=== PATIENT | female | born 1980 | race Caucasian/White ===

== ENCOUNTER 2017-04-02 18:25 | Emergency (ER) | payer MEDICAID ==
[~2017-04-02] VITALS: Ht 160 cm; Wt 81.6 kg
[2017-04-02 19:02] VITALS: BP 140/76
--- NOTE | 2017-04-02 19:26 | NUR ---
37 Y/O F W/C/O RIGHT 5TH FINGER PAIN SINCE LAST NOC. PT DENIES ANY OTHER MEDICAL HX. AFFECTED FINGER APPEARS RED AND SWOLLEN. PT STATES IS DIFFICULT TO BEND OR MOVE FINGER.
--- NOTE | 2017-04-02 19:27 | NUR ---
TO ER [id number]
--- NOTE | 2017-04-02 19:30 | NUR ---
Patient being evaluated by ACADEM[facility] PROGRAM SPECIALIST.
[2017-04-02 20:31] VITALS: BP 139/84
--- NOTE | 2017-04-02 20:31 | NUR ---
Patient discharged with v/s stable. Written and verbal after care instructions given and explained. Patient verbalized understanding. Ambulatory with steady gait. All questions addressed prior to discharge. Advised to follow up with PMD OR RETURN TO ER IF CONDITION WORSENS. FINGER SPLINT APPLIED ON AFFECTED FIRNGER BY EMT. PT TOLERATED WELL.
== END 2017-04-02 20:31 | disposition home or self-care (01) ==
LOC: MED 18:25
DX: S69.91XA Unspecified injury of right wrist, hand and finger(s), initial encounter (principal); W20.8XXA Other cause of strike by thrown, projected or falling object, initial encounter; Y93.89 Activity, other specified; Y99.8 Other external cause status; Y99.0 Civilian activity done for income or pay
CPT/HCPCS: 73140; 99284

== ENCOUNTER 2017-04-14 15:04 | Emergency (ER) | payer MEDICAID ==
[~2017-04-14] VITALS: Ht 162.6 cm; Wt 87.1 kg
[2017-04-14 15:50] VITALS: BP 117/71
--- NOTE | 2017-04-14 16:10 | NUR ---
PATIENT PRESENTS TO ED WITH intermittent paresthesia bue x >1 month---labs 1 wk ago, called by pmd saturday to say she may have a blood clot.pt is concerned because she had another episode of paresthesia bue, headaache;DENIES N/V/D; SKIN IS PINK/WARM/DRY; AAOX4 WITH EVEN AND STEADY GAIT; LUNGS CLEAR BL; HR EVEN AND REGULAR; PT DENIES ANY FEVER, CP, SOB, OR COUGH AT THIS TIME; PATIENT STATES PAIN OF 4/10 headache AT THIS TIME;PATIENT POSITIONED FOR COMFORT; HOB ELEVATED; BEDRAILS UP X2; BED DOWN. all monitors in placed.
--- NOTE | 2017-04-14 16:10 | NUR ---
Patient to bed 07.
[2017-04-14] MEDS ORDERED: NACL 0.9% 1,000 ML IV SCH (16:23)
--- NOTE | 2017-04-14 16:23 | NUR ---
Dr. Guo evaluating patient at bedside.
--- NOTE | 2017-04-14 16:44 | NUR ---
XRAY at bedside.
--- NOTE | 2017-04-14 16:48 | NUR ---
US tech at bedside.
[2017-04-14 17:06] LABS: BASOPHILS # (AUTO) 0.2 K/uL (0.00-0.22); BASOPHILS % (AUTO) 1.8 % (0.0-2.0); EOSINOPHILS # (AUTO) 0.2 K/uL (0-0.4); EOSINOPHILS % (AUTO) 2.3 % (0.0-4.0); HEMATOCRIT 38.4 % (36-48); HEMOGLOBIN 12.5 g/dL (12.0-16.0); LYMPHOCYTES # (AUTO) 2.4 K/uL (2.5-16.5); LYMPHOCYTES % (AUTO) 28.1 % (20.5-51.1); MEAN CORPUSCULAR HEMOGLOBIN 28 pg (27-31); MEAN CORPUSCULAR HGB CONC 33 g/dL (33-37); MEAN CORPUSCULAR VOLUME 87 fL (80-94); MONOCYTES # (AUTO) 0.4 K/uL (0.8-1.0); MONOCYTES % (AUTO) 4.2 % (1.7-9.3); NEUTROPHILS # (AUTO) 5.4 K/uL (1.8-7.7); NEUTROPHILS % (AUTO) 63.6 % (42.2-75.2); PLATELET COUNT (AUTO) 353 K/uL (140-450); RED BLOOD CELL COUNT(AUTO) 4.43 MIL/uL (4.20-5.40); RED CELL DISTRIBUTION WIDTH 12.9 % (11.6-13.7); WHITE BLOOD COUNT (AUTO) 8.6 K/uL (4.8-10.8)
[2017-04-14 17:16] LABS: AMYLASE 51 U/L (25-115); LIPASE 170 U/L (73-393)
[2017-04-14 17:16] LABS: ANION GAP 9.7 (8-16); CALCIUM 8.4 mg/dL (8.5-10.1); CARBON DIOXIDE 29.2 mmol/L (21-32); CREATININE 0.7 mg/dL (0.6-1.3); POTASSIUM 3.9 mmol/L (3.5-5.1)
--- NOTE | 2017-04-14 17:21 | NUR ---
PT AMBULATED TO THE RESTROOM.
[2017-04-14 17:22] LABS: ALBUMIN 3.4 g/dL (3.4-5.0); TOTAL BILIRUBIN 0.4 mg/dL (0.0-1.0); TOTAL PROTEIN, SERUM 7.4 g/dL (6.4-8.2)
[2017-04-14 17:29] LABS: PARTIAL THROMBOPLASTIN TIME 30.9 secs (22-35.6); PROTHROMBIN TIME 9.8 secs (10.8-13.4)
--- NOTE | 2017-04-14 18:16 | NUR ---
PT RESTING ON BED;LESLY CUTE DSITRESS NOTED;WILL CONTINUE TO MONITOR PT.
[2017-04-14 18:45] VITALS: BP 115/70
--- NOTE | 2017-04-14 18:45 | NUR ---
Patient discharged with v/s stable. Written and verbal after care instructions given and explained. Patient alert, oriented and verbalized understanding of instructions. Ambulatory with steady gait. All questions addressed prior to discharge. ID band removed. Patient advised to follow up with PMD. Rx of TYLENOL W/ CODEINE AND ATIVAN given. Patient educated on indication of medication including possible reaction and side effects. Opportunity to ask questions provided and answered.
[2017-04-14 23:40] LABS: APPEARANCE,URINE SL CLOUDY (CLEAR); BILIRUBIN,URINE NEGATIVE (NEGATIVE); BLOOD, URINE NEGATIVE (NEGATIVE); COLOR,URINE YELLOW (YELLOW); LEUKOCYTE ESTERASE ,URINE NEGATIVE (NEGATIVE); NITRITE, URINE NEGATIVE (NEGATIVE); PROTEIN,URINE NEGATIVE (NEGATIVE); UGLUCOSE NEGATIVE (NEGATIVE); UROBILINOGEN,URINE 0.2 EU/dL (0.2 - 1)
[2017-04-14 23:52] LABS: BACTERIA,URINE 3+ /HPF (None Seen); RBC,URINE 0-5 (RARE) /HPF (0-5); SQUAMOUS EPITHELIAL CELL,UR 20-40 /LPF (0-3 (FEW))
== END 2017-04-14 18:45 | disposition home or self-care (01) ==
LOC: MED 15:04
DX: G44.209 Tension-type headache, unspecified, not intractable (principal); F41.9 Anxiety disorder, unspecified; R20.9 Unspecified disturbances of skin sensation; Z88.0 Allergy status to penicillin; Z71.6 Tobacco abuse counseling
CPT/HCPCS: 36415; 71010; 80053; 81001; 81025; 82150; 82553; 83690; 83880; 84484; 85025; 85379; 85610; 85730; 87086; 93005; 93970; 96360; 99285; J7030; Q0092

== ENCOUNTER 2018-02-11 21:54 | Emergency (ER) | payer MEDICAID ==
[~2018-02-11] VITALS: Ht 160 cm; Wt 81.6 kg
[2018-02-11 22:00] VITALS: BP 106/75
--- NOTE | 2018-02-11 22:05 | NUR ---
Pt presents to ED with bilateral foot/ankle edema, 1+ non pitting. Pt states no cardiac history. Pt arrived to ED with sinus tackycardia at 109. Pt is not in distress, states no SOB, Dyspnea, pain in lower legs 1/10 described as pressure. Positioned in bed for comfort. A&Ox4, skin warm and dry. ER MD aware. Continue to monitor.
--- NOTE | 2018-02-11 22:07 | NUR ---
PT.AMBULTED TO ER BED 4
[2018-02-11] MEDS ORDERED: FUROSEMIDE 20 MG/2 ML VIAL IVP ONE (23:15)
[2018-02-11 23:42] LABS: BASOPHILS % (AUTO) 0.6 % (0.0-2.0); EOSINOPHILS # (AUTO) 0.2 K/uL (0-0.4); EOSINOPHILS % (AUTO) 2.7 % (0.0-4.0); HEMATOCRIT 34.9 % (36-48); HEMOGLOBIN 11.7 g/dL (12.0-16.0); LYMPHOCYTES # (AUTO) 2.6 K/uL (2.5-16.5); LYMPHOCYTES % (AUTO) 36.4 % (20.5-51.1); MEAN CORPUSCULAR HEMOGLOBIN 29 pg (27-31); MEAN CORPUSCULAR HGB CONC 33 g/dL (33-37); MEAN CORPUSCULAR VOLUME 86.1 fL (80-94); MONOCYTES # (AUTO) 0.4 K/uL (0.8-1.0); MONOCYTES % (AUTO) 6.1 % (1.7-9.3); NEUTROPHILS # (AUTO) 3.9 K/uL (1.8-7.7); NEUTROPHILS % (AUTO) 54.2 % (42.2-75.2); PLATELET COUNT (AUTO) 297 K/uL (140-450); RED BLOOD CELL COUNT(AUTO) 4.06 MIL/uL (4.20-5.40); RED CELL DISTRIBUTION WIDTH 13.3 % (11.6-13.7); WHITE BLOOD COUNT (AUTO) 7.1 K/uL (4.8-10.8)
[2018-02-11 23:47] LABS: ANION GAP 13.4 (8-16); CARBON DIOXIDE 25.6 mmol/L (21-32); CREATININE 0.7 mg/dL (0.6-1.3)
[2018-02-11 23:54] LABS: TOTAL BILIRUBIN 0.3 mg/dL (0.0-1.0)
[2018-02-12 00:53] LABS: APPEARANCE,URINE CLEAR (CLEAR); BILIRUBIN,URINE NEGATIVE (NEGATIVE); BLOOD, URINE 2+ (NEGATIVE); COLOR,URINE YELLOW (YELLOW); LEUKOCYTE ESTERASE ,URINE 1+ (NEGATIVE); NITRITE, URINE POSITIVE (NEGATIVE); UGLUCOSE NEGATIVE (NEGATIVE)
[2018-02-12 01:10] LABS: RBC,URINE 11-20 (MOD) /HPF (0-5)
--- NOTE | 2018-02-12 01:15 | NUR ---
Patient discharged with v/s stable. Written and verbal after care instructions given and explained. Patient alert, oriented and verbalized understanding of instructions. Ambulatory with steady gait. All questions addressed prior to discharge. ID band removed. Patient advised to follow up with PMD. Rx of HYDROCHLORITHIAZIDE given. Patient educated on indication of medication including possible reaction and side effects. Opportunity to ask questions provided and answered.
[2018-02-12 01:16] VITALS: BP 103/70
== END 2018-02-12 01:15 | disposition home or self-care (01) ==
LOC: MED 21:54
DX: R60.0 Localized edema (principal); E88.09 Other disorders of plasma-protein metabolism, not elsewhere classified; F17.200 Nicotine dependence, unspecified, uncomplicated; E11.9 Type 2 diabetes mellitus without complications; Z88.0 Allergy status to penicillin
CPT/HCPCS: 36415; 71045; 80053; 81001; 83880; 85025; 87086; 87186; 93005; 96374; 99285; J1940; Q0092

== ENCOUNTER 2018-06-12 02:00 | Emergency (ER) | payer MEDICAID ==
[~2018-06-12] VITALS: Ht 160 cm; Wt 90.8 kg
--- NOTE | 2018-06-12 02:06 | NUR ---
PT TAKEN TO BED 4
[2018-06-12 02:10] VITALS: BP 115/74
--- NOTE | 2018-06-12 02:20 | NUR ---
CAME IN WITH C/O RT FOOT PAIN WITH REDNESS FOR 3 DAYS, 8/10 PAIN LEVEL
[2018-06-12 02:50] VITALS: BP 115/74
--- NOTE | 2018-06-12 02:50 | NUR ---
Patient discharged with v/s stable. Written and verbal after care instructions given and explained by Enrique Hopper Patient alert, oriented and verbalized understanding of instructions. Ambulatory with steady gait. All questions addressed prior to discharge. ID band removed. Patient advised to follow up with PMD. Rx of keflex 500 mg given. Patient educated on indication of medication including possible reaction and side effects. Opportunity to ask questions provided and answered.
== END 2018-06-12 02:50 | disposition home or self-care (01) ==
LOC: MED 02:00
DX: L03.116 Cellulitis of left lower limb (principal); Z88.0 Allergy status to penicillin
CPT/HCPCS: 99283

== ENCOUNTER 2019-01-24 09:04 | Emergency (ER) | payer MEDICAID ==
[~2019-01-24] VITALS: Ht 160 cm; Wt 95.8 kg
--- NOTE | 2019-01-24 09:13 | NUR ---
Patient ambulated to bed 7 at this time
[2019-01-24 09:15] VITALS: BP 119/71
--- NOTE | 2019-01-24 09:20 | NUR ---
38 Y F c/o dry non-productive cough, sore throat x 2 days. pt reports chest pain with cough and generalized body aches 8/10 pain. -redness or swelling in throat. vss at this time. -fever, -n/v. bed is down, locked, bed rail x 1, ermd notified of patient status. pmh-none meds-none
[2019-01-24 10:13] VITALS: BP 99/67
--- NOTE | 2019-01-24 10:15 | NUR ---
Patient discharged with v/s stable BY DR ANGULO. Written and verbal after care instructions given and explained. Patient alert, oriented and verbalized understanding of instructions. Ambulatory with steady gait. All questions addressed prior to discharge. ID band removed. Patient advised to follow up with PMD. Rx of PROMETHAZINE, LEVAQUIN given. Patient educated on indication of medication including possible reaction and side effects. Opportunity to ask questions provided and answered.
== END 2019-01-24 10:15 | disposition home or self-care (01) ==
LOC: MED 09:04
DX: J20.9 Acute bronchitis, unspecified (principal); F17.210 Nicotine dependence, cigarettes, uncomplicated; Z88.0 Allergy status to penicillin; Z98.51 Tubal ligation status
CPT/HCPCS: 81002; 81025; 99283

== ENCOUNTER 2019-02-05 23:53 | Emergency (ER) | payer MEDICAID ==
[~2019-02-05] VITALS: Ht 160 cm; Wt 81.6 kg
[2019-02-06 00:22] VITALS: BP 103/69
--- NOTE | 2019-02-06 00:29 | NUR ---
TO ER BED 7
--- NOTE | 2019-02-06 00:30 | NUR ---
PT CAME IN TO ER WITH C/O NEEDING A MEDICATION AND TO HAVE A RECHECK ON HER BRONCHITIS THAT SHE WAS DIAGNOSED 4 DAYS AGO. PT STATED THAT SHE WAS SUPPOSED TO GET AN ALBERTEROL INHALOR BUT THE ER MD DID NOT GIVE HER A PRESCRIPTION AND SHE DID NOT REALIZE IT UNTIL SHE WAS ALREADY HOME. PT STATED SHE IS TAKING HER ANTIBIOTICS DIRECTED. PT IS A/OX4. ER MD MADE AWARE. SAFETY PRECAUTIONS IN PLACE, BED RAILS UP X1.
[2019-02-06] MEDS ORDERED: ALBUTEROL SULFATE/IPRATROPIU 3 ML SOL IH ONE (00:45)
--- NOTE | 2019-02-06 01:43 | NUR ---
PT STATED SHE IS FEELING RELIEF FROM THE BREATHING TREATMENT AND HAS NO PAIN AT THIS TIME.
[2019-02-06 02:01] VITALS: BP 101/63
--- NOTE | 2019-02-06 02:01 | NUR ---
Patient discharged with v/s stable. Written and verbal after care instructions given and explained. Patient alert, oriented and verbalized understanding of instructions. Ambulatory with steady gait. All questions addressed prior to discharge. ID band removed. Patient advised to follow up with PMD. Rx of ALBUTEROL INHALER given. Patient educated on indication of medication including possible reaction and side effects. Opportunity to ask questions provided and answered.
== END 2019-02-06 02:01 | disposition home or self-care (01) ==
LOC: MED 23:53
DX: J20.9 Acute bronchitis, unspecified (principal); F17.200 Nicotine dependence, unspecified, uncomplicated; Z88.0 Allergy status to penicillin
CPT/HCPCS: 94640; 99283; J7620

== ENCOUNTER 2019-04-13 00:10 | Emergency (ER) | payer MEDICAID ==
[~2019-04-13] VITALS: Ht 160 cm; Wt 92.5 kg
[2019-04-13 00:11] VITALS: BP 107/63
--- NOTE | 2019-04-13 00:18 | NUR ---
PT AMBULATED TO BED #11
--- NOTE | 2019-04-13 00:22 | NUR ---
PT BIB SELF C/O NECK PAIN AND RIGHT HAND TINGLING. PT STATES SUDDEN ONSET OF NECK PAIN X1 WEEK; INTERMITTENT 9/10 SHARP/POKING PAIN; INTERMITTENT RIGHT HAND TINGLING; DENIES TRAUMA OR INJURY. PT HAS BEEN TAKING IBUPROFEN W/O RELIEF. PT STATES SHE STARTED A NEW JOB; UNDER MORE STRESS LATELY. BREATHING EQUAL AND UNLABORED. PT ACTING APPROPRIATLY; SPEAKING IN CLEAR AND COMPLETE SENTENCES. PMH: DENIES
--- NOTE | 2019-04-13 00:28 | NUR ---
DR. TRIPLETT BEDSIDE EVALUATING PT
[2019-04-13] MEDS ORDERED: IBUPROFEN 800 MG TAB PO ONE (00:35)
[2019-04-13] MEDS ORDERED: CYCLOBENZAPRINE 10 MG TAB PO ONE (00:35)
--- NOTE | 2019-04-13 00:57 | NUR ---
PT TAKEN TO RAD VIA WHEELCHAIR
--- NOTE | 2019-04-13 01:13 | NUR ---
PT RETURNED FROM RAD VIA WHEELCHAIR
[2019-04-13 01:30] VITALS: BP 110/64
--- NOTE | 2019-04-13 01:30 | NUR ---
Patient discharged with v/s stable. Written and verbal after care instructions given and explained. Patient alert, oriented and verbalized understanding of instructions. Ambulatory with steady gait. All questions addressed prior to discharge. ID band removed. Patient advised to follow up with PMD. Rx of MOTRIN AND FLEXERIL given. Patient educated on indication of medication including possible reaction and side effects. Opportunity to ask questions provided and answered.
== END 2019-04-13 01:30 | disposition home or self-care (01) ==
LOC: MED 00:10
DX: S16.1XXA Strain of muscle, fascia and tendon at neck level, initial encounter (principal); M54.12 Radiculopathy, cervical region; F17.210 Nicotine dependence, cigarettes, uncomplicated; Z88.0 Allergy status to penicillin; Z71.6 Tobacco abuse counseling; X58.XXXA Exposure to other specified factors, initial encounter; Y93.89 Activity, other specified; Y92.89 Other specified places as the place of occurrence of the external cause; Y99.0 Civilian activity done for income or pay
CPT/HCPCS: 72040; 99283; Q0092

== ENCOUNTER 2019-05-08 02:40 | Emergency (ER) | payer MEDICAID ==
[~2019-05-08] VITALS: Ht 160 cm; Wt 90.7 kg
[2019-05-08 02:46] VITALS: BP 108/71
--- NOTE | 2019-05-08 02:46 | NUR ---
PT TAKEN TO BED 9
--- NOTE | 2019-05-08 02:48 | NUR ---
PT CAME INTO ER C/O OF INSECT BITE ON LEFT LOWER LEG SINCE YESTERDAY. PAIN LEVEL 7/10, ITCHING AND BURNING. MEDHX: ASTHMA. PT ALSO SEEKING REFILL FOR ALBUTEROL. SAFETY MEASURES IN PLACE. WAITING FOR ERMD TO EVALUATE PT.
[2019-05-08 03:10] VITALS: BP 108/71
--- NOTE | 2019-05-08 03:10 | NUR ---
Patient discharged with v/s stable. Written and verbal after care instructions given and explained. Patient alert, oriented and verbalized understanding of instructions. Ambulatory with steady gait. All questions addressed prior to discharge. ID band removed. Patient advised to follow up with PMD. Rx of CLINDAMYCIN, NAPROSYN, AND ALBUTEROL given. Patient educated on indication of medication including possible reaction and side effects. Opportunity to ask questions provided and answered.
== END 2019-05-08 03:10 | disposition home or self-care (01) ==
LOC: MED 02:40
DX: S80.862A Insect bite (nonvenomous), left lower leg, initial encounter (principal); J45.909 Unspecified asthma, uncomplicated; Z88.0 Allergy status to penicillin; W57.XXXA Bitten or stung by nonvenomous insect and other nonvenomous arthropods, initial encounter; Y93.89 Activity, other specified; Y92.89 Other specified places as the place of occurrence of the external cause; Y99.8 Other external cause status
CPT/HCPCS: 99283

== ENCOUNTER 2019-09-17 16:40 | Emergency (ER) | payer MEDICAID ==
[~2019-09-17] VITALS: Ht 160 cm; Wt 86.2 kg
[2019-09-17 16:50] VITALS: BP 126/76
--- NOTE | 2019-09-17 16:50 | NUR ---
PT TAKEN TO CHAIR A. TRIAGED IN CHAIR.
--- NOTE | 2019-09-17 16:55 | NUR ---
PT PRESENTS TO ED WITH COMPLAINTS OF HAVING A THROAT PROBLEM. PT STATES "MY THROAT HAS CLICKING." PT STATES SHE SAW HER PCP AND WAS REFERRED TO [facility] SPECIAL[facility] BUT DOES NOT HAVE AN APPOINTMENT UNTIL JANUARY. PT DENIES HAVING PAIN. PT STATES "IT'S UNCOMFORTABLE WHEN I SWALLOW OR WHEN I EAT. IT'S NOT PAIN." NO DROOPING NOTED. NO SIGNS OF DIFFICULTY BREATHING. NO STRIDOR NOTED. PT SPEAKING CLEARLY, ANSWERING QUESTIONS APPROPRIATELY.
--- NOTE | 2019-09-17 17:49 | NUR ---
PT TO XRAY VIA WHEELCHAIR.
--- NOTE | 2019-09-17 18:01 | NUR ---
PT REQUESTS TO WAIT IN BED 12 WITH HER DAUGHTER FOR RESULTS.
--- NOTE | 2019-09-17 18:35 | NUR ---
Patient discharged with v/s stable. Written and verbal after care instructions given and explained. Patient verbalized understanding. Ambulatory with steady gait. All questions addressed prior to discharge. Advised to follow up with PMD.
[2019-09-17 18:36] VITALS: BP 135/72
== END 2019-09-17 18:35 | disposition home or self-care (01) ==
LOC: MED 16:40
DX: R07.0 Pain in throat (principal); J45.909 Unspecified asthma, uncomplicated; Z88.0 Allergy status to penicillin
CPT/HCPCS: 70360; 99283

== ENCOUNTER 2019-11-23 02:17 | Emergency (ER) | payer MEDICAID ==
[~2019-11-23] VITALS: Ht 160 cm; Wt 92.6 kg
[2019-11-23 02:35] VITALS: BP 122/67
--- NOTE | 2019-11-23 02:35 | NUR ---
TO BED # 05 AMBULATORY
[2019-11-23 02:50] VITALS: BP 122/67
--- NOTE | 2019-11-23 03:00 | NUR ---
PT ASSESSMENT COMPLETE. WILL CONTINUE TO MONITOR
[2019-11-23] MEDS ORDERED: cefTRIAXone 2,000 MG in DEXTROSE 5% 100 ML IV ONE (03:05)
[2019-11-23] MEDS ORDERED: cefTRIAXone 2,000 MG VIAL ONE (03:11)
== END 2019-11-23 05:32 | disposition home or self-care (01) ==
LOC: MED 02:17
DX: L02.225 Furuncle of perineum (principal); J45.909 Unspecified asthma, uncomplicated; Z88.0 Allergy status to penicillin
CPT/HCPCS: 96365; 99283; J0696

== ENCOUNTER 2020-06-20 22:11 | Emergency (ER) | payer MEDICAID ==
[~2020-06-20] VITALS: Ht 160 cm; Wt 90.3 kg
[2020-06-20 22:37] VITALS: BP 108/54
--- NOTE | 2020-06-20 22:42 | NUR ---
PT AMBULATED TO LOBBY.
--- NOTE | 2020-06-20 23:26 | NUR ---
PT AMBULATED TO BED 12
[2020-06-20 23:30] VITALS: BP 108/54
--- NOTE | 2020-06-20 23:30 | NUR ---
RT FOOT PAIN X 2 DAYS. PT REPORTS PAIN STARTING AFTER GETTING A PEDICURE. RT FOOT SHOWS REDNESS, SWELLING, AND CIRCULAR NODULES. 06/13 AND DESCRIBES IT TIGHTNESS. DENIES ANY TRUAMA OR INJURY. NO OBVIOUS DEFOMRITY NOTED. STEADY GAIT WITH LIMPING. A&O X4. MEDHX- NONE ALLX- PCN
[2020-06-20] MEDS ORDERED: IBUPROFEN 600 MG TAB PO ONE (23:40)
[2020-06-20] MEDS ORDERED: BACITRACIN OINT 500 UNITS/GM PKT TP ONE (23:40)
--- NOTE | 2020-06-21 00:04 | NUR ---
PT WOUND ON R FOOT COVERED WITH BANDAID AFTER BACITRACIN APPLIED
--- NOTE | 2020-06-21 00:15 | NUR ---
Patient discharged with v/s stable. Written and verbal after care instructions given and explained. Patient alert, oriented and verbalized understanding of instructions. Ambulatory with steady gait. All questions addressed prior to discharge. ID band removed. Patient advised to follow up with PMD. Rx of BACITRACIN, BACTRIM,AND MOTRIN given. Patient educated on indication of medication including possible reaction and side effects. Opportunity to ask questions provided and answered.
== END 2020-06-21 00:15 | disposition home or self-care (01) ==
LOC: MED 22:11
DX: M77.31 Calcaneal spur, right foot (principal); L25.9 Unspecified contact dermatitis, unspecified cause
CPT/HCPCS: 99283

== ENCOUNTER 2021-01-11 13:41 | Emergency (ER) | payer MEDICAID ==
[~2021-01-11] VITALS: Ht 160 cm; Wt 90.7 kg
[2021-01-11 13:54] VITALS: BP 118/80
--- NOTE | 2021-01-11 13:59 | NUR ---
DREW BOLANOS AT BEDSIDE EVALUATING.
[2021-01-11] MEDS ORDERED: KETOROLAC 30 MG/ML VIAL IM ONE (14:05)
--- NOTE | 2021-01-11 14:09 | NUR ---
40 Y/O FEMALE C/O BILATERAL LEG SWELLING WITH 8/10 PAIN DESCRIBES PRESSURE/TIGHTNESS NONRADIATING. TOOK TYNENOL WITH NO RELIEF. PT DENIES INJURY/TRAUMA/CHANGE OF DIET/ACTIVITY. PT STATED SHE TESTED + FOR COVID 10/2020. PT DENIES N/V/SOB. PT HAS NON-PITTING EDEMA, ERYTHEMA NOTED, WITH FULL ROM. PT REFUSED TO TAKE OFF SHOES TO CHECK CAP REFILL AND PEDAL PULSES. PT STATED SHE FEELS ITCHY AND HAS BEEN SCRATCHING. PT SMOKES 1/2 PACK OF CIGARETTES/DAY. PT IS A/O X4 WITH EVEN AND UNLABORED RESPIRATIONS. DENIES PMH ALLERGIES TO PCN
--- NOTE | 2021-01-11 14:20 | NUR ---
RAD AT BEDSIDE
[2021-01-11 14:32] LABS: BASOPHILS % (AUTO) 0.6 % (0.0-2.0); EOSINOPHILS # (AUTO) 0.1 K/uL (0-0.4); EOSINOPHILS % (AUTO) 1.2 % (0.0-4.0); HEMOGLOBIN 12.3 g/dL (12.0-16.0); LYMPHOCYTES # (AUTO) 2.4 K/uL (2.5-16.5); MEAN CORPUSCULAR HEMOGLOBIN 29 pg (27-31); MEAN CORPUSCULAR HGB CONC 33 g/dL (33-37); MEAN CORPUSCULAR VOLUME 86.1 fL (80-94); MONOCYTES # (AUTO) 0.5 K/uL (0.8-1.0); MONOCYTES % (AUTO) 6.8 % (1.7-9.3); NEUTROPHILS # (AUTO) 4.6 K/uL (1.8-7.7); NEUTROPHILS % (AUTO) 60.4 % (42.2-75.2); PLATELET COUNT (AUTO) 362 K/uL (140-450); RED CELL DISTRIBUTION WIDTH 13.9 % (11.6-13.7); WHITE BLOOD COUNT (AUTO) 7.7 K/uL (4.8-10.8)
--- NOTE | 2021-01-11 14:35 | NUR ---
PT UNABLE TO PROVIDE URINE SAMPLE. GIVEN 2 CUPS OF WATER
[2021-01-11 14:51] LABS: ALBUMIN 3.4 g/dL (3.4-5.0); ANION GAP 12.2 (8-16); CARBON DIOXIDE 27.8 mmol/L (21-32); CREATININE 0.7 mg/dL (0.6-1.3); TOTAL BILIRUBIN 0.4 mg/dL (0.0-1.0)
[2021-01-11] MEDS ORDERED: SULF-58 PO (15:20)
[2021-01-11] MEDS ORDERED: NAPR-54 PO (15:20)
--- NOTE | 2021-01-11 15:39 | NUR ---
US AT BEDSIDE
--- NOTE | 2021-01-11 16:27 | NUR ---
PT AMBULATED TO RESTROOM FOR URINE SAMPLE
[2021-01-11 16:53] VITALS: BP 118/80
--- NOTE | 2021-01-11 16:53 | NUR ---
Patient discharged with v/s stable. Written and verbal after care instructions given and explained. Patient alert, oriented and verbalized understanding of instructions. Ambulatory with steady gait. All questions addressed prior to discharge. ID band removed. Patient advised to follow up with PMD. Rx of naproxen and sulfamethoxazole/trimethoprim given. Patient educated on indication of medication including possible reaction and side effects. Opportunity to ask questions provided and answered.
== END 2021-01-11 16:53 | disposition home or self-care (01) ==
LOC: MED 13:41
DX: L03.115 Cellulitis of right lower limb (principal); L03.116 Cellulitis of left lower limb; R60.0 Localized edema; F17.210 Nicotine dependence, cigarettes, uncomplicated; J45.909 Unspecified asthma, uncomplicated; Z88.0 Allergy status to penicillin; Z79.899 Other long term (current) drug therapy; Z71.6 Tobacco abuse counseling
CPT/HCPCS: 36415; 71045; 80053; 81002; 81025; 83880; 85025; 93970; 96372; 99285; J1885

== ENCOUNTER 2022-11-02 10:23 | Emergency (ER) | payer MEDICAID ==
[~2022-11-02] VITALS: Ht 160 cm; Wt 96.2 kg
[~2022-11-02 10:23] MED LIST: NAPR-54 PO; SULF-58 PO
[2022-11-02 10:30] VITALS: BP 109/70
--- NOTE | 2022-11-02 10:38 | NUR ---
42 Y/O FEMALE BIB SELF C/O DECREASED HEARING IN THE LEFT EAR, PT CONTINUES TO BE ABLE TO HEAR FROM AFFECTED EAR HOWEVER STATES THAT IT IS MUFFLED. DENIES ANY PAIN, FEVERS, TRAUMA/INJURY, DRAINAGE. PT STATES THAT SHE BELIEVES SHE HAS SOME WAX IN HER EAR. ALLERGY: PCN PMH: DENIES
--- NOTE | 2022-11-02 12:02 | NUR ---
L EAR IRRIGATED WITH SOLUTION OF NORMAL SALINE x HYDROGEN PEROXIDE. WAX SUBSTANCE REMOVED FROM L EAR. PT STATED SHE FELT DIZZY AFTER PROCEDURE. PT ASSISTED BACK TO WAITING ROOM.
[2022-11-02 12:17] VITALS: BP 109/70
--- NOTE | 2022-11-02 12:17 | NUR ---
Patient discharged with v/s stable. Written and verbal after care instructions ABOUT EARWAX BUILDUP given and explained. Patient verbalized understanding. Ambulatory with steady gait. All questions addressed prior to discharge. Advised to follow up with PMD.
== END 2022-11-02 12:17 | disposition home or self-care (01) ==
LOC: MED 10:23
DX: H61.22 Impacted cerumen, left ear (principal); F17.210 Nicotine dependence, cigarettes, uncomplicated; Z88.0 Allergy status to penicillin; Z79.899 Other long term (current) drug therapy
CPT/HCPCS: 99282

== ENCOUNTER 2023-01-10 15:24 | Emergency (ER) | payer MEDICAID ==
[~2023-01-10] VITALS: Ht 160 cm; Wt 95.3 kg
[2023-01-10 15:54] VITALS: BP 130/73
--- NOTE | 2023-01-10 16:01 | NUR ---
PT AMB TO BED 6.
--- NOTE | 2023-01-10 16:15 | NUR ---
42YO FEMALE PT C/O SHARP 08/13 LL ABD PAIN/ PELVIC XYESTERDAY. REPORTS SUDDEN INTERMITTENT ONSETS W/ NO RELIEF AFTER TYLENOL OR IBUPROFEN. ABD NON TENDER OR DISTENDED. +NAUSEA. STATES PREVIOUS S/S TO OVARIAN CYST. DENIES V/D, CHEST PAIN,FEVER OR CHILLS. PT AAOX4, HOB POSITIONED PER COMFORT. HX: OVARIAN CYST ALLERGIES: PENICILLIN
[2023-01-10 16:20] LABS: BASOPHILS % (AUTO) 0.3 % (0.0-2.0); EOSINOPHILS # (AUTO) 0.1 K/uL (0-0.4); HEMATOCRIT 35.7 % (36-48); LYMPHOCYTES # (AUTO) 2.4 K/uL (2.5-16.5); LYMPHOCYTES % (AUTO) 21.3 % (20.5-51.1); MEAN CORPUSCULAR HEMOGLOBIN 28 pg (27-31); MEAN CORPUSCULAR HGB CONC 34 g/dL (33-37); MEAN CORPUSCULAR VOLUME 83.6 fL (80-94); MONOCYTES # (AUTO) 0.6 K/uL (0.8-1.0); NEUTROPHILS # (AUTO) 8.2 K/uL (1.8-7.7); NEUTROPHILS % (AUTO) 72.4 % (42.2-75.2); PLATELET COUNT (AUTO) 373 K/uL (140-450); RED BLOOD CELL COUNT(AUTO) 4.27 MIL/uL (4.20-5.40); RED CELL DISTRIBUTION WIDTH 13.7 % (11.6-13.7); WHITE BLOOD COUNT (AUTO) 11.3 K/uL (4.8-10.8)
[2023-01-10 16:27] LABS: APPEARANCE,URINE SL CLOUDY (CLEAR); BILIRUBIN,URINE NEGATIVE (NEGATIVE); BLOOD, URINE 3+ (NEGATIVE); COLOR,URINE YELLOW (YELLOW); LEUKOCYTE ESTERASE ,URINE 1+ (NEGATIVE); NITRITE, URINE NEGATIVE (NEGATIVE); UGLUCOSE NEGATIVE (NEGATIVE)
[2023-01-10 17:08] LABS: RBC,URINE 20-50 /HPF (0-5)
[2023-01-10 17:18] LABS: ALBUMIN 3.3 g/dL (3.4-5.0); ANION GAP 10.4 (8-16); CARBON DIOXIDE 29.5 mmol/L (21-32); CREATININE 0.8 mg/dL (0.6-1.3); POTASSIUM 3.9 mmol/L (3.5-5.1); TOTAL BILIRUBIN 0.5 mg/dL (0.0-1.0)
[2023-01-10] MEDS ORDERED: HYDROcodone/APAP 5/325 MG 1 TAB TAB PO ONE (17:30)
[2023-01-10] MEDS ORDERED: KETOROLAC 30 MG/ML VIAL IM ONE (17:55)
--- NOTE | 2023-01-10 17:57 | NUR ---
PT TAKEN TO CT VIA NAVARRO
--- NOTE | 2023-01-10 18:08 | NUR ---
PT BROUGHT BACK VIA NAVARRO
--- NOTE | 2023-01-10 19:32 | NUR ---
REPORT GIVEN TO JUDAH RN. TRANSFER OF CARE AT THIS TIME.
[2023-01-10] MEDS ORDERED: IBUP-1876 PO (21:14)
[2023-01-10 21:33] VITALS: BP 111/64
--- NOTE | 2023-01-13 17:00 | NUR ---
LATE ENTRY. RECEIVED POSITIVE URINE CULTURE, FORM GIVEN TO DR PEREYRA. TREATMENT APPROPRIATE. FORM PLACED IN BINDER.
== END 2023-01-10 21:33 | disposition home or self-care (01) ==
LOC: MED 15:24
DX: R10.32 Left lower quadrant pain (principal); Z88.0 Allergy status to penicillin; Z79.899 Other long term (current) drug therapy; Z98.890 Other specified postprocedural states
CPT/HCPCS: 36415; 74176; 76830; 80053; 81001; 81025; 85025; 87086; 96372; 99285; J1885; Q0092

== ENCOUNTER 2023-04-19 10:47 | Emergency (ER) | payer MEDICAID ==
[~2023-04-19] VITALS: Ht 162.6 cm; Wt 74.8 kg
[~2023-04-19 10:47] MED LIST changes: +IBUP-1876 PO
[2023-04-19 10:56] VITALS: BP 114/65
--- NOTE | 2023-04-19 11:01 | NUR ---
PT AMB TO BED 12
[2023-04-19] MEDS ORDERED: methocarbamoL 500 MG TAB PO STA (11:04)
[2023-04-19] MEDS ORDERED: LIDOCAINE 5% 1 EA PATCH TP ONE (11:05)
[2023-04-19] MEDS ORDERED: ACETAMINOPHEN 325 MG TAB PO ONE (11:05)
--- NOTE | 2023-04-19 11:25 | NUR ---
43YO FEMALE PT C/O SHARP LOWER BACK PAIN XTODAY. REPORTS ONSET S/P MECH FALL BACKWARDS WHILE STANDING ON STEP STOOL. -[id number]. BACK W/O VISIBLE INJURY OR DEFORMITY. DENIES NUMBING, LOSS OF SENSATION OR RELIEF AFTER IBUPROFEN. PT AAOX4, AMB W/ STEADY GAIT. HOB POSITIONED PER COMFORT HX:DENIES ALLERGIES: PENICILLIN
[2023-04-19] MEDS ORDERED: KETOROLAC 15 MG/ML VIAL IM ONE (12:05)
[2023-04-19] MEDS ORDERED: METH-1681 PO (13:25)
[2023-04-19] MEDS ORDERED: IBUP-2213 PO (13:25)
[2023-04-19] MEDS ORDERED: LID5T TP (13:25)
== END 2023-04-19 13:37 | disposition home or self-care (01) ==
LOC: MED 10:47
DX: S39.012A Strain of muscle, fascia and tendon of lower back, initial encounter (principal); Z88.0 Allergy status to penicillin; Z79.899 Other long term (current) drug therapy; W19.XXXA Unspecified fall, initial encounter; Y93.89 Activity, other specified; Y92.89 Other specified places as the place of occurrence of the external cause; Y99.8 Other external cause status
CPT/HCPCS: 72128; 72131; 81025; 99284; J1885